=== PATIENT | male | born 1960 | race Caucasian/White ===

== ENCOUNTER 2022-08-07 11:27 | Inpatient (IN) | payer MEDICAID ==
[~2022-08-07] VITALS: Ht 165.1 cm; Wt 55.8 kg
[2022-08-07] MEDS ORDERED: KETOROLAC 30MG/ML VIAL IV STA (12:14)
[2022-08-07] MEDS ORDERED: SODIUM CHLORIDE 0.9% 1,000 ML IV ONE (12:15)
[2022-08-07 13:04] LABS: BASOPHILS % 0.6 % (0.0-2.0); EOSINOPHILS % 0.2 % (0.0-5.0); HEMATOCRIT. 38.9 % (42.0-52.0); HEMOGLOBIN. 13.5 g/dL (14.0-18.0); LYMPHOCYTES % 11.7 % (20.0-50.0); MEAN CORPUSCULAR HEMOGLOBIN 32.3 pg (28.0-32.0); MEAN CORPUSCULAR VOLUME 93.3 fL (80.0-94.0); MEAN PLATELET VOLUME 6.5 fl (7.4-10.4); MONOCYTES % 8.3 % (2.0-8.0); NEUTROPHILS % 79.2 % (40.0-76.0); PLATELET 258 x1000/uL (130-400); RED BLOOD CELL COUNT 4.16 mill/uL (4.7-6.1); RED CELL DISTRIBUTION WIDTH 13.4 % (11.6-14.6)
[2022-08-07 13:11] LABS: CHLORIDE 100 mEq/L (98-107)
[2022-08-07 13:18] LABS: ETHANOL BLOOD < 10 mg/dL
[2022-08-07 16:24] LABS: CLARITY URINE CLOUDY (CLEAR); COLOR URINE YELLOW (YELLOW); KETONES URINE NEGATIVE (NEGATIVE); LEUKOCYTE ESTERASE URINE NEGATIVE (NEGATIVE); NITRITE URINE NEGATIVE (NEGATIVE); OCCULT BLOOD URINE NEGATIVE (NEGATIVE); PH URINE 8.5 (4.5-8.0); PROTEIN URINE NEGATIVE (NEGATIVE); SPECIFIC GRAVITY URINE 1.008 (1.005-1.030); UROBILINOGEN URINE 0.2 E.U./dL (0.2-1.0)
[2022-08-07 16:54] LABS: *AMPHETAMINES SCREEN URINE NEGATIVE (NEGATIVE); *BARBITURATES SCREEN URINE NEGATIVE (NEGATIVE); *BENZODIAZEPINES SCREEN URINE NEGATIVE (NEGATIVE); *COCAINE SCREEN URINE NEGATIVE (NEGATIVE); CANNABINOID URINE SCREEN NEGATIVE (NEGATIVE); METHADONE URINE SCREEN NEGATIVE (NEGATIVE); OPIATES URINE SCREEN NEGATIVE (NEGATIVE); PHENCYCLIDINE URINE SCREEN NEGATIVE (NEGATIVE)
[2022-08-07] MEDS ORDERED: LEVETIRACETAM 500MG PREMIX 100 ML IV NR (18:00)
[2022-08-08] VITALS (44 sets, daily range): BP systolic 66–155; BP diastolic 29–97
[2022-08-08] MEDS ORDERED: MORPHINE SULFATE 2 MG/ML CPJ (NOT FOR IM USE) IV PRN (07:15)
[2022-08-08] MEDS ORDERED: NICARDIPINE 100 MG in SODIUM CHLORIDE 0.9% 60 ML IV PRN (07:15)
[2022-08-08] MEDS ORDERED: NALOXONE HCL 0.4MG/ML VIAL IV PRN (07:15)
[2022-08-08] MEDS: DEXT 5%/LACTATED RINGERS 1,000 ML IV SCH (07:15)
[2022-08-08] MEDS: LEVETIRACETAM 500MG PREMIX 100 ML IV SCH ×2 (09:34→20:57)
[2022-08-08] MEDS ORDERED: GADOTERATE MEGLUMINE 5 MMOL/10 ML VIAL IV ONE (09:55)
[2022-08-08 10:18] LABS: INR 1.1; PROTHROMBIN TIME 11.5 sec (9.6-11.0)
[2022-08-08] MEDS ORDERED: DOCUSATE SODIUM 100MG CAPSULE PO PRN (15:30)
[2022-08-08] MEDS ORDERED: ONDANSETRON HCL 4MG/2ML INJ IV PRN (15:30)
[2022-08-08] MEDS ORDERED: CLONIDINE 0.1MG TABLET PO PRN (15:30)
[2022-08-08] MEDS ORDERED: LEVETIRACETAM 500MG/5ML CUP PO SCH (21:00)
[2022-08-09] VITALS (48 sets, daily range): BP systolic 83–134; BP diastolic 49–81
[2022-08-09] MEDS ORDERED: VALPROATE SODIUM 1,000 MG in SODIUM CHLORIDE 0.9% 100 ML IV NR (01:30)
[2022-08-09] MEDS: FOLIC ACID 1MG TABLET PO SCH ×2 (01:35→08:57)
[2022-08-09] MEDS: THIAMINE HCL 500 MG in SODIUM CHLORIDE 0.9% 95 ML IV SCH ×2 (01:35→10:54)
[2022-08-09] MEDS: DEXT 5%/LACTATED RINGERS 1,000 ML IV SCH (01:36)
[2022-08-09 04:51] LABS: BASOPHILS % 0.8 % (0.0-2.0); EOSINOPHILS % 1.2 % (0.0-5.0); HEMATOCRIT. 38.2 % (42.0-52.0); HEMOGLOBIN. 13.3 g/dL (14.0-18.0); LYMPHOCYTES % 29.7 % (20.0-50.0); MEAN CORPUSCULAR HEMOGLOBIN 32.4 pg (28.0-32.0); MEAN CORPUSCULAR VOLUME 93.2 fL (80.0-94.0); MEAN PLATELET VOLUME 6.5 fl (7.4-10.4); MONOCYTES % 9.8 % (2.0-8.0); NEUTROPHILS % 58.5 % (40.0-76.0); PLATELET 231 x1000/uL (130-400); RED BLOOD CELL COUNT 4.09 mill/uL (4.7-6.1); RED CELL DISTRIBUTION WIDTH 13.3 % (11.6-14.6)
[2022-08-09 04:55] LABS: CHLORIDE 108 mEq/L (98-107)
[2022-08-09 05:31] LABS: VITAMIN B12 SERUM 224 pg/mL (211-911)
[2022-08-09] MEDS: DEXAMETHASONE 4MG TABLET PO SCH ×4 (06:14→23:33)
[2022-08-09] MEDS: LEVETIRACETAM 500MG PREMIX 100 ML IV SCH ×2 (08:56→20:59)
[2022-08-09] MEDS: PANTOPRAZOLE SODIUM 40 MG/VIAL IV SCH (08:56)
[2022-08-09] MEDS: DIVALPROEX SODIUM 500MG DR TABLET PO SCH ×2 (11:57→21:00)
[2022-08-09] MEDS ORDERED: HYDROCODONE/ACETAMINOPHEN 5/325MG TABLET PO PRN (18:45)
[2022-08-10] VITALS (18 sets, daily range): BP systolic 86–139; BP diastolic 51–80
[2022-08-10] MEDS: DEXAMETHASONE 4MG TABLET PO SCH ×2 (05:48→12:40)
[2022-08-10] MEDS: LEVETIRACETAM 500MG PREMIX 100 ML IV SCH (08:37)
[2022-08-10] MEDS: FOLIC ACID 1MG TABLET PO SCH (08:37)
[2022-08-10] MEDS: PANTOPRAZOLE SODIUM 40 MG/VIAL IV SCH (08:37)
[2022-08-10] MEDS: DIVALPROEX SODIUM 500MG DR TABLET PO SCH (08:44)
[2022-08-10] MEDS ORDERED: KEPP500 MT (11:54)
[2022-08-10] MEDS ORDERED: DIVA-18 PO (11:54)
[2022-08-10] MEDS ORDERED: DEX4 PO (11:54)
[2022-08-10] MEDS ORDERED: FOLI-43 PO (11:54)
[2022-08-10] MEDS ORDERED: THIA100T88 MT (11:54)
[2022-08-11] MEDS ORDERED: FAMOTIDINE 20MG TABLET PO SCH (09:00)
[2022-08-11] MEDS ORDERED: LEVETIRACETAM 500MG/5ML CUP PO SCH (09:00)
== END 2022-08-10 18:22 | disposition home or self-care (01) | DRG 55 ==
LOC: ER 11:36 → MICUSO 21:57 → UNDOADMIN 21:57 → EDBEDREQTM 22:15 → EDBEDREQ 22:15 → MICUSO 08-08 12:00 → 5EST 08-10 08:11
PROVIDERS: ADMIT Internal Medicine; ATTEND Internal Medicine
DX: S06.35AA Traumatic hemorrhage of left cerebrum with loss of consciousness status unknown, initial encounter (principal); G93.41 Metabolic encephalopathy; R64 Cachexia; S05.31XA Ocular laceration without prolapse or loss of intraocular tissue, right eye, initial encounter; S06.1XAA Traumatic cerebral edema with loss of consciousness status unknown, initial encounter; N20.0 Calculus of kidney; G40.909 Epilepsy, unspecified, not intractable, without status epilepticus; Z68.20 Body mass index [BMI] 20.0-20.9, adult; M21.962 Unspecified acquired deformity of left lower leg; Y04.0XXA Assault by unarmed brawl or fight, initial encounter; Y93.89 Activity, other specified; Y92.89 Other specified places as the place of occurrence of the external cause; Y99.8 Other external cause status
CPT/HCPCS: 36415; 70551; 70552; 73502; 74176; 80048; 80053; 80305; 80320; 81003; 82607; 82962; 84425; 85025; 93005; 93970; 97162; 99291; A9577; C9113; J1885; J1953; J2270; J2310; J3411; J3490; J7030; J7050; J7121; J8540; G0480